=== PATIENT | female | born 1935 | race Caucasian/White ===

== ENCOUNTER 2021-02-27 23:42 | Emergency (ER) | payer MEDICARE ==
[2021-02-28 01:22] VITALS: BP 179/98; PULSE 85; RESP 19; TEMP 97.5
--- NOTE | 2021-02-28 01:51 | ED ---
ENT HPI - General Chief complaint: ENT Stated complaint: Nose Bleed Time Seen by Provider: 02/28/21 00:14 Source: patient Mode of arrival: wheelchair Limitations: no limitations - History of Present Illness Initial comments: 85-year-old female patient presents to the emergency department today for evaluation of nosebleed. Patient states she started having bleeding approximately an hour ago from the left nostril. She denies any facial pain or trauma. Denies any recent illness. She denies use of blood thinning medications. Denies dizziness or weakness. Denies history of nosebleeds. Has been applying pressure. - Related Data Allergies Allergy/AdvReac Type Severity Reaction Status Date / Time No Known Allergies Allergy Verified 02/27/21 23:58 Review of Systems ROS Statement: Those systems with pertinent positive or pertinent negative responses have been documented in the HPI. ROS Other: All systems not noted in ROS Statement are negative. Past Medical History Past Medical History: Hypertension History of Any Multi-Drug Resistant Organisms: None Reported Past Surgical History: No Surgical Hx Reported Past Psychological History: No Psychological Hx Reported Smoking Status: Never smoker Past Alcohol Use History: Occasional Past Drug Use History: None Reported General Exam Limitations: no limitations General appearance: alert, in no apparent distress, other (This is a well- developed, well-nourished adult female patient in no acute distress.) ENT exam: Present: normal exam, normal oropharynx. Absent: other (There is dried blood noted to the left nostril.) Respiratory exam: Present: normal lung sounds bilaterally. Absent: respiratory distress, wheezes, rales, rhonchi, stridor Cardiovascular Exam: Present: regular rate, normal rhythm, normal heart sounds. Absent: systolic murmur, diastolic murmur, rubs, gallop, clicks Neurological exam: Present: alert, oriented X3, CN II-XII intact Psychiatric exam: Present: normal affect, normal mood Skin exam: Present: warm, dry, intact, normal color. Absent: rash Course Vital Signs 02/27/21 02/28/21 02/28/21 23:59 00:06 01:06 Temperature 98.0 F 97.5 F L Pulse Rate 104 H 85 Respiratory 20 19 Rate Blood Pressure 210/105 190/111 179/98 O2 Sat by Pulse 96 95 Oximetry Medical Decision Making - Medical Decision Making 85-year-old female patient presented for evaluation of bleeding from the left nostril. Physical examination did reveal dried blood but no active bleeding. She was found to be hypertensive. She missed her evening dose of blood pressure medication. Reapplied the clamp and treated her blood pressure. I did improve. Upon reevaluation she is resting comfortable. Clamp was removed she had no further bleeding. She was able to ablate to the department without any rebleeding. We did discuss management of nosebleeds at home. She is instructed to follow-up through primary care physician for recheck in 1-2 days. Return parameters were discussed in detail. She verbalizes understanding and agrees with this plan. My attending is Dr. Vale. Disposition Clinical Impression: Epistaxis, Hypertension Disposition: HOME SELF-CARE Condition: Good Instructions (If sedation given, give patient instructions): Nosebleed (ED), Hypertension (ED) Additional Instructions: Use nasal clamp for at least 20 minutes at a time if bleeding restarts. Do not blow your nose. Make sure taking her blood pressure medication. Follow up through primary care physician for recheck in 1-2 days. Return for any new, worsening, or concerning symptoms. Is patient prescribed a controlled substance at d/c from ED?: No Referrals: Nonstaff,Physician [Primary Care Provider] - 1-2 days Time of Disposition: 01:50
== END 2021-02-28 02:04 | disposition home or self-care (01) ==
LOC: EC 23:42
DX: R04.0 Epistaxis (principal); I10 Essential (primary) hypertension
CPT/HCPCS: 99283